=== PATIENT | female | born 1975 | race Caucasian/White ===

== ENCOUNTER → 2017-01-31 | Outpatient (CLI) | payer BC ==
[~2017-01-31] MED LIST: CITA40TA12 PO; MTR600X PO; OXYC5TAB PO; SUMA50TA15 PO; TOPI50TA16 PO
--- NOTE | 2017-01-31 17:28 | DIAGNOSTIC IMAGING REPORT ---
RIGHT FOOT 3 VIEWS CLINICAL HISTORY: Right foot pain and swelling. FINDINGS: 3 views of the right foot are obtained. No prior studies are available for comparison at the time of dictation. The skeletal structures are well mineralized. No fracture is seen. The joint spaces of the foot are well-maintained. Mild soft tissue swelling is questioned along the lateral aspect of the foot at the fifth metatarsophalangeal joint. IMPRESSION: No acute bony abnormality is seen in the right foot. Electronically signed by: Bob Bustillo M.D. 01/31/2017 5:26 PM Dictated Date/Time: 01/31/2017 5:25 PM
== END | disposition home or self-care (01) ==
LOC: C.RAD1850 16:59
PROVIDERS: ATTEND Nurse Practitioner Family
DX: M79.671 Pain in right foot (principal); M79.89 Other specified soft tissue disorders